=== PATIENT | female | born 1970 | race Hispanic/Latino ===

== ENCOUNTER 2024-09-16 14:01 | Emergency (ER) | payer SELFPAY ==
[~2024-09-16] VITALS: Ht 170.2 cm; Wt 93.4 kg
[2024-09-16 16:15] VITALS: BP 134/77
[2024-09-16] MEDS ORDERED: MOTRIN800 MG PO (16:21)
== END 2024-09-16 16:16 | disposition home or self-care (01) | DRG 563 ==
LOC: ED 14:01
PROC: 2W3DX1Z Immobilization of Left Lower Arm using Splint (ICD-10-PCS; principal; 2024-09-16)
DX: S52.322A Displaced transverse fracture of shaft of left radius, initial encounter for closed fracture (principal); S52.612A Displaced fracture of left ulna styloid process, initial encounter for closed fracture; W01.0XXA Fall on same level from slipping, tripping and stumbling without subsequent striking against object, initial encounter